=== PATIENT | female | born 1975 | race Caucasian/White ===

== ENCOUNTER 2020-02-11 08:51 | Outpatient (REF) | payer OTHER, SELFPAY ==
--- NOTE | 2020-02-11 | XR_ITS ---
EXAMINATION: XR CERVICAL SPINE CLINICAL INFORMATION: Right arm radiculopathy COMPARISON: None TECHNIQUE: 6 views cervical spine FINDINGS: Straightening of the cervical curvature. No significant subluxation. Prevertebral soft tissue is normal. Visible acute fracture. Moderate to severe disc degeneration at C4-C5, C5-C6, C6-C7 with disc height loss, endplate osteophytes. The neural foramen grossly appear patent. Lung apices are clear. Base of the dens is intact. IMPRESSION: Moderate to severe C4-C5, C5-C6, C6-C7 disc degeneration.
== END 2020-02-11 08:52 | disposition home or self-care (01) ==
LOC: HO.XRAY 08:51
PROVIDERS: PCP Family Medicine; Visit Provider Family Medicine
DX: M54.12 Radiculopathy, cervical region (principal)
CPT/HCPCS: 72050